=== PATIENT | male | born 1985 | race Caucasian/White ===

== ENCOUNTER 2017-08-16 07:36 | Outpatient (CLI) | payer OTHER ==
[2017-08-16] MEDS ORDERED: NACL ONE (08:01)
[2017-08-16 08:31] LABS: Blood Urea Nitrogen 14 mg/dL (9-20)
--- NOTE | 2017-08-16 09:29 | Cat Scan Report ---
FINAL REPORT EXAM: CT CHEST W CON HISTORY: CHRONIC COUGH TECHNIQUE: CT of chest without IV contrast. Coronal and sagittal reconstructed images provided. PRIORS: None currently available. FINDINGS: Large patchy areas of ground-glass opacities identified. Subtle reticular nodular thickening identified in both lungs. There may be some mild peribronchial thickening. No pneumothorax. No distinct consolidation. Scarring and traction bronchiectasis noted within small area in the left upper lung. No obvious effusion. 6.1 mm irregular subpleural nodule in the right lower lung series 2:138. Main pulmonary arteries are unremarkable. No pulmonary embolus. No aortic aneurysm. No dissection. Right aortic arch. Right-sided heart noted. No pericardial effusion. Images of the esophagus are unremarkable. A few mildly prominent bilateral axillary lymph nodes identified. Mildly prominent bilateral hilar mediastinal lymph nodes noted. Findings are nonspecific. No mass. Images of the esophagus are unremarkable. Spleen is on the right side. Liver is on the left. No suspicious osseous lesions on this limited examination of the skeleton. Metastatic disease better evaluated with bone scan. IMPRESSION: Situs inversus. Ground-glass opacities and subtle areas of reticular nodular thickening. Findings may represent fungal pneumonia, viral pneumonia, atypical pneumonia, interstitial pneumonitis, inflammatory pneumonitis, hypersensitivity pneumonitis, or a mild pulmonary vascular congestion. No obvious effusion. Mildly prominent bilateral axillary, bilateral hilar, and mediastinal lymph nodes. Nonspecific. Possibly reactive.
== END 2017-08-16 07:37 | disposition home or self-care (01) ==
LOC: CT 07:36
PROVIDERS: ATTEND Internal Medicine
DX: J45.909 Unspecified asthma, uncomplicated (principal); J47.9 Bronchiectasis, uncomplicated; J98.4 Other disorders of lung; R91.1 Solitary pulmonary nodule; Q89.3 Situs inversus
CPT/HCPCS: 36415; 71260; 82565; 84520; Q9967